=== PATIENT | male | born 1990 | race American Indian/Alaskan Native ===

== ENCOUNTER 2021-07-10 01:55 | Emergency (ER) | payer MEDICAID ==
[2021-07-10 02:49] LABS: AMPHETAMINES,URINE NEGATIVE (NEGATIVE); BARBITURATES,URINE NEGATIVE (NEGATIVE); BENZODIAZEPINE,URINE NEGATIVE (NEGATIVE); MDMA (ECSTASY), URINE NEGATIVE (NEGATIVE); METHADONE,URINE NEGATIVE (NEGATIVE); METHAMPHETAMINES,URINE NEGATIVE (NEGATIVE); OPIATES,URINE NEGATIVE (NEGATIVE); OXYCODONE,URINE NEGATIVE (NEGATIVE); PHENCYCLIDINE,URINE NEGATIVE (NEGATIVE); TCA,URINE NEGATIVE (NEGATIVE)
[2021-07-10 02:56] LABS: CHLORIDE,CL 104 mEq/L (98-106); SODIUM,NA 143 mEq/L (136-145)
--- NOTE | 2021-07-10 03:15 | EDM.PDOC ---
ED HPI GENERAL MEDICAL PROBLEM - General Chief Complaint: General Stated Complaint: detoxing, vomiting Time Seen by Provider: 07/10/21 02:30 Source of Information: Reports: Patient, Old Records History Limitations: Reports: No Limitations - History of Present Illness INITIAL COMMENTS - FREE TEXT/NARRATIVE: Toney is a 30 yo male who presents to the ED with c/o cough, runny nose and covid exposure. He is very concerned regarding this exposure to a coworker and a resident at the [facility]. Reports he has had low grade fever as well. Reports this is main reason for presenting as he wishes to be tested. He also reports he has been experiencing alcohol withdrawal. Reports he quit drinking ~ 24 hours ago. Has started with tremors and vomiting recently. Denies any headache, hallucinations, anxiety. CIWA 9 for vomiting and tremor. He reports he has been getting bloody noses frequently. Does currently have epistaxis from right nare, which started again after he vomited recently. He reports he has alcoholic cirrhosis and portal hypertension. Bilirubin has been chronically elevated. He is jaundiced. Is scheduled to see GI doctor and have US tomorrow at [facility]. Chart review indicates he was hospitalized ~3 weeks ago in [place] for withdrawal. Initially he left AMA and then presented again to the ED almost immediately following leaving AMA. Onset: Today Duration: Getting Worse Associated Symptoms: Reports: Cough, Fever/Chills, Loss of Appetite, Nausea/Vomiting, Weakness. Denies: Confusion, Chest Pain, cough w sputum, Diaphoresis, Headaches, Malaise, Rash, Seizure, Shortness of Breath, Syncope - Related Data Allergies Allergy/AdvReac Type Severity Reaction Status Date / Time No Known Allergies Allergy Verified 07/10/21 02:32 Home Meds: Home Meds Amoxicillin/Clavulanate K [Augmentin 500-125 MG] 1 tab PO TID #30 tab 06/15/21 [Rx] Bacitracin [Bacitracin Oint] 1 gm TOP BID #1 tube 06/15/21 [Rx] Ferrous Sulfate 325 mg PO DAILY #30 tab 06/15/21 [Rx] Folic Acid 1 mg PO DAILY #30 tab 06/15/21 [Rx] Metoprolol Tartrate 25 mg PO BID #60 tab 06/15/21 [Rx] Multivitamins/Minerals [Vitamins and Minerals] 1 tab PO WITHBREAKFAST #30 tablet 06/15/21 [Rx] Thiamine [Vitamin B-1] 100 mg PO DAILY #30 tab 06/15/21 [Rx] amLODIPine [Norvasc] 5 mg PO DAILY #30 tab 06/15/21 [Rx] Lactulose [Chronulac] 15 gm PO TID 07/10/21 [History] Magnesium Oxide 400 mg PO BIDMEALS 07/10/21 [History] Spironolactone [Aldactone] 25 mg PO DAILY 07/10/21 [History] Past Medical History - Past Health History Medical/Surgical History: Denies Medical/Surgical History Cardiovascular History: Reports: Hypertension Gastrointestinal History: Reports: Cirrhosis, Fatty Liver Neurological History: Reports: Concussion Psychiatric History: Reports: Addiction Endocrine/Metabolic History: Reports: Diabetes, Type II Other Endocrine/Metabolic History: States he was tested once and they stated he was pre diabetic. Never followed up. Hematologic History: Reports: Blood Transfusion(s), Folic Acid - Infectious Disease History Infectious Disease History: Reports: Chicken Pox - Past Surgical History GI Surgical History: Reports: Colonoscopy, EGD, Other (See Below) Other GI Surgeries/Procedures: abd fluid drained Male Surgical History: Reports: Circumcision Social & Family History - Family History Family Medical History: No Pertinent Family History - Tobacco Use Tobacco Use Status *Q: Never Tobacco User - Caffeine Use Caffeine Use: Reports: None Other Caffeine Use: 1 soda /day - Recreational Drug Use Recreational Drug Use: No ED ROS GENERAL - Review of Systems Review Of Systems: Comprehensive ROS is negative, except as noted in HPI. Constitutional: Reports: Fever, Chills HEENT: Reports: Nosebleed Respiratory: Reports: Cough Cardiovascular: Reports: No Symptoms GI/Abdominal: Reports: Diarrhea, Nausea, Vomiting. Denies: Abdominal Pain, Bl ack Stool, Bloody Stool, Hematemesis : Reports: No Symptoms Musculoskeletal: Reports: No Symptoms Skin: Reports: Jaundice. Denies: Pruritis Neurological: Denies: Confusion, Dizziness, Headache, Seizure, Difficulty Walking Psychiatric: Denies: Hallucinations ED EXAM, GENERAL - Physical Exam Exam: See Below Exam Limited By: No Limitations General Appearance: Alert, WD/WN, No Apparent Distress Eye Exam: Bilateral Eye: EOMI, Normal Fundi, Normal Inspection, PERRL Nose: Other (epistaxis ) Head: Atraumatic, Normocephalic Neck: Normal Inspection, Supple, Non-Tender, Full Range of Motion Respiratory/Chest: No Respiratory Distress, Lungs Clear, Normal Breath Sounds, No Accessory Muscle Use, Chest Non-Tender Cardiovascular: Normal Peripheral Pulses, Regular Rate, Rhythm, No Edema, No Gallop, No JVD, No Rub, Systolic Murmur GI/Abdominal: Normal Bowel Sounds, Soft, Other (ascites) Back Exam: Normal Inspection, Full Range of Motion, NT Extremities: Normal Inspection, Normal Range of Motion, Non-Tender, Normal Capillary Refill, No Pedal Edema Neurological: Alert, Oriented, Normal Cognition, Normal Gait, No Motor/Sensory Deficits Psychiatric: Normal Affect, Normal Mood Skin Exam: Jaundice Course - Vital Signs Last Recorded V/S: Last Vital Signs Temp 100.7 F H 07/10/21 02:28 Pulse 100 07/10/21 02:28 Resp 20 07/10/21 02:28 BP 156/85 H 07/10/21 02:28 Pulse Ox 98 07/10/21 02:28 - Orders/Labs/Meds Labs: Laboratory Tests 07/10/21 07/10/21 07/10/21 Range/Units 02:13 02:30 02:30 WBC 11.3 H (4.0-11.0) 10^3/uL RBC 2.63 L (4.50-6.00) x10^6/uL Hgb 9.3 L (14.0-18.0) g/dL Hct 26.8 L (42.0-52.0) % MCV 101.9 H (83.0-97.0) fL MCH 35.4 H (27.0-32.0) pg MCHC 34.7 (32.0-36.0) g/dL RDW Coeff of Santosh 14.6 (11.0-15.0) % Plt Count 41 L* (150-400) 10^3/uL Immature Gran % (Auto) 0.2 (0.0-4.9) % Neut % (Auto) 90.2 H (41-71) % Lymph % (Auto) 5.1 L (24-44) % Howell % (Auto) 4.1 (0-10) % Eos % (Auto) 0.1 (0-6) % Baso % (Auto) 0.3 (0-1) % Neut # (Auto) 10.19 H (1.80-8.00) x10^3/uL Lymph # (Auto) 0.57 L (0.60-5.00) 10^3/uL Howell # (Auto) 0.46 (0.00-1.50) 10^3/uL Eos # (Auto) 0.01 (0.00-1.50) 10^3/uL Baso # (Auto) 0.03 (0.00-0.50) 10^3/uL Immature Gran # (Auto) 0.02 (0.00-0.49) 10^3/uL Sodium (136-145) mEq/L Potassium (3.5-5.0) mEq/L Chloride (98-106) mEq/L Carbon Dioxide (21-32) mmol/L BUN (7-18) mg/dL Creatinine (0.7-1.3) mg/dL Est Cr Clr Drug Dosing mL/min Estimated GFR (MDRD) (>=60) mL/min Glucose (75-99) mg/dL Calcium (8.4-10.1) mg/dL Total Bilirubin (0.0-1.0) mg/dL AST (15-37) U/L ALT (12-78) U/L Alkaline Phosphatase (46-116) U/L C-Reactive Protein (0.2-0.8) mg/dL Total Protein (6.4-8.2) g/dL Albumin (3.4-5.0) g/dL Urine Color Randolph (YELLOW) Urine Appearance Clear (CLEAR) Urine pH 6.0 (4.5-8.0) Ur Specific Roslyn 1.025 H (1.003-1.020) Urine Protein 30 H (NEGATIVE) mg/dL Urine Glucose (UA) Negative (NEGATIVE) mg/dL Urine Ketones Negative (NEGATIVE) mg/dL Urine Occult Blood Negative (NEGATIVE) Urine Nitrite Negative (NEGATIVE) Urine Bilirubin Moderate H (NEGATIVE) Urine Urobilinogen 0.2 (0.2-1.0) EU/dL Ur Leukocyte Esterase Negative (NEGATIVE) Urine RBC 0-5 (0-5) /HPF Urine WBC 0-5 (0-5) /HPF Urine Mucus Moderate H (NOT SEEN) /HPF Urine Opiates Screen Negative (NEGATIVE) Ur Oxycodone Screen Negative (NEGATIVE) Urine Methadone Screen Negative (NEGATIVE) Ur Barbiturates Screen Negative (NEGATIVE) U Tricyclic Antidepress Negative (NEGATIVE) Ur Phencyclidine Scrn Negative (NEGATIVE) Ur Amphetamine Screen Negative (NEGATIVE) U Methamphetamines Scrn Negative (NEGATIVE) Urine MDMA Screen Negative (NEGATIVE) U Benzodiazepines Scrn Negative (NEGATIVE) Urine Cocaine Screen Negative (NEGATIVE) U Marijuana (THC) Screen Negative (NEGATIVE) SARS CoV-2 RNA Rapid JEFF (NEGATIVE) 07/10/21 07/10/21 Range/Units 02:30 02:30 WBC (4.0-11.0) 10^3/uL RBC (4.50-6.00) x10^6/uL Hgb (14.0-18.0) g/dL Hct (42.0-52.0) % MCV (83.0-97.0) fL MCH (27.0-32.0) pg MCHC (32.0-36.0) g/dL RDW Coeff of Santosh (11.0-15.0) % Plt Count (150-400) 10^3/uL Immature Gran % (Auto) (0.0-4.9) % Neut % (Auto) (41-71) % Lymph % (Auto) (24-44) % Howell % (Auto) (0-10) % Eos % (Auto) (0-6) % Baso % (Auto) (0-1) % Neut # (Auto) (1.80-8.00) x10^3/uL Lymph # (Auto) (0.60-5.00) 10^3/uL Howell # (Auto) (0.00-1.50) 10^3/uL Eos # (Auto) (0.00-1.50) 10^3/uL Baso # (Auto) (0.00-0.50) 10^3/uL Immature Gran # (Auto) (0.00-0.49) 10^3/uL Sodium 143 (136-145) mEq/L Potassium 3.9 (3.5-5.0) mEq/L Chloride 104 (98-106) mEq/L Carbon Dioxide 23 (21-32) mmol/L BUN 11 (7-18) mg/dL Creatinine 1.3 (0.7-1.3) mg/dL Est Cr Clr Drug Dosing 80.38 mL/min Estimated GFR (MDRD) > 60 (>=60) mL/min Glucose 157 H (75-99) mg/dL Calcium 9.2 (8.4-10.1) mg/dL Total Bilirubin 8.5 H (0.0-1.0) mg/dL AST 90 H (15-37) U/L ALT 26 (12-78) U/L Alkaline Phosphatase 190 H (46-116) U/L C-Reactive Protein < 0.2 L (0.2-0.8) mg/dL Total Protein 8.9 H (6.4-8.2) g/dL Albumin 3.5 (3.4-5.0) g/dL Urine Color (YELLOW) Urine Appearance (CLEAR) Urine pH (4.5-8.0) Ur Specific Roslyn (1.003-1.020) Urine Protein (NEGATIVE) mg/dL Urine Glucose (UA) (NEGATIVE) mg/dL Urine Ketones (NEGATIVE) mg/dL Urine Occult Blood (NEGATIVE) Urine Nitrite (NEGATIVE) Urine Bilirubin (NEGATIVE) Urine Urobilinogen (0.2-1.0) EU/dL Ur Leukocyte Esterase (NEGATIVE) Urine RBC (0-5) /HPF Urine WBC (0-5) /HPF Urine Mucus (NOT SEEN) /HPF Urine Opiates Screen (NEGATIVE) Ur Oxycodone Screen (NEGATIVE) Urine Methadone Screen (NEGATIVE) Ur Barbiturates Screen (NEGATIVE) U Tricyclic Antidepress (NEGATIVE) Ur Phencyclidine Scrn (NEGATIVE) Ur Amphetamine Screen (NEGATIVE) U Methamphetamines Scrn (NEGATIVE) Urine MDMA Screen (NEGATIVE) U Benzodiazepines Scrn (NEGATIVE) Urine Cocaine Screen (NEGATIVE) U Marijuana (THC) Screen (NEGATIVE) SARS CoV-2 RNA Rapid JEFF Negative (NEGATIVE) Meds: Medications Discontinued Medications Generic Name Dose Route Start Last Admin Trade Name Freq PRN Reason Stop Dose Admin Multivitamins/Minerals 10 ml/ 1,015.2 mls @ 500 mls/hr 07/10/21 03:08 07/10/21 03:40 Folic Acid 1 mg/ Thiamine HCl IV 07/10/21 05:09 500 mls/hr 100 mg/ Magnesium Sulfate 2 gm ONETIME ONE Administration / Sodium Chloride Lorazepam 1 mg 07/10/21 03:08 07/10/21 03:39 Lorazepam 2 Mg/Ml Syringe IVPUSH 07/10/21 03:09 1 mg ONETIME ONE Administration Lorazepam 2 packet 07/10/21 03:09 07/10/21 05:21 Take Home: Lorazepam 0.5 Mg Tab, 2 Tab Pack PO 07/10/21 03:10 2 packet ONETIME ONE Administration Ondansetron HCl 4 mg 07/10/21 03:09 07/10/21 03:42 Ondansetron 4 Mg/2 Ml Sdv IVPUSH 07/10/21 03:10 4 mg STAT STA Administration - Re-Assessments/Exams Free Text/Narrative Re-Assessment/Exam: 07/10/21 03:29 Discussed lab results with patient. Will administer banana bag, zofran and ativan. Epistaxis resolved. Patient does currently have tremors but no other withdrawal symptoms. Discussed discharge home with PO ativan for withdrawal symptoms. Patient agreeable. Discussed importance of seeing his GI provider tomorrow as scheduled due to persistently elevated bilirubin. Departure - Departure Time of Disposition: 04:12 Disposition: Home, Self-Care 01 Condition: Poor Clinical Impression: Total bilirubin, elevated, Portal hypertension, Thrombocytopenia, Jaundice due to hepatitis, Epistaxis, recurrent, Viral URI with cough Cirrhosis of liver Qualifiers: Hepatic cirrhosis type: alcoholic cirrhosis Ascites presence: with ascites Qualified Code(s): K70.31 - Alcoholic cirrhosis of liver with ascites Alcohol withdrawal syndrome Qualifiers: Complication of substance-induced condition: with unspecified complication Qualified Code(s): F10.239 - Alcohol dependence with withdrawal, unspecified - Discharge Information *PRESCRIPTION DRUG MONITORING PROGRAM REVIEWED*: Not Applicable *COPY OF PRESCRIPTION DRUG MONITORING REPORT IN PATIENT OSEAS: Not Applicable Instructions: Thrombocytopenia, [id number], Alcohol Withdrawal Syndrome, [id number] Referrals: PCP,None [Primary Care Provider] - Forms: ED Department Discharge Additional Instructions: - Zofran as needed for nausea/vomiting - Rest and push fluids - Refrain from alcohol - Ativan (lorazepam) 1 tablet orally every 3 hours as needed for withdrawal symptoms (tremors, anxiety, headache, N/V) - Resume home medications - Follow up with GI doctor as scheduled today - Follow up with PCP for recheck in next 3-5 days - Return to ED for emergent needs or if withdrawal symptoms not managed by PO Ativan - Problem List & Annotations (1) Viral URI with cough SNOMED Code(s): 873291663, 272779985 Code(s): J06.9 - ACUTE UPPER RESPIRATORY INFECTION, UNSPECIFIED Status: Acute (2) Alcohol withdrawal syndrome SNOMED Code(s): 777610635 Code(s): F10.239 - ALCOHOL DEPENDENCE WITH WITHDRAWAL, UNSPECIFIED Status: Acute Qualifiers: Complication of substance-induced condition: with unspecified complication Qualified Code(s): F10.239 - Alcohol dependence with withdrawal, unspecified (3) Cirrhosis of liver SNOMED Code(s): 11737761 Code(s): K74.60 - UNSPECIFIED CIRRHOSIS OF LIVER Status: Acute Qualifiers: Hepatic cirrhosis type: alcoholic cirrhosis Ascites presence: with ascites Qualified Code(s): K70.31 - Alcoholic cirrhosis of liver with ascites (4) Epistaxis, recurrent SNOMED Code(s): 603777662, 773404979 Code(s): R04.0 - EPISTAXIS Status: Acute (5) Jaundice due to hepatitis SNOMED Code(s): 91742046 Code(s): K75.9 - INFLAMMATORY LIVER DISEASE, UNSPECIFIED Status: Acute (6) Portal hypertension SNOMED Code(s): 18023490 Code(s): K76.6 - PORTAL HYPERTENSION Status: Acute (7) Thrombocytopenia SNOMED Code(s): 490732529 Code(s): D69.6 - THROMBOCYTOPENIA, UNSPECIFIED Status: Acute (8) Total bilirubin, elevated SNOMED Code(s): 980559717713861 Code(s): R17 - UNSPECIFIED JAUNDICE Status: Acute - Assessment/Plan Plan: Patient presents to ED with multiple complaints. Lab work all stable at baseline for patient. Covid is negative, which was his main concern for presenting this evening due to his exposure at his workplace. Discussed viral etiology and recommend symptomatic cares at this time. Does appear to be having mild withdrawal symptoms. CIWA 9 for n/v and tremor. Denies any hallucinations, anxiety, headache etc. Patient was given banana bag while in ED. Was also given Zofran for nausea as well as Ativan for tremors/withdrawal. He will be discharged home with Ativan 0.5 mg tablets to use as needed for withdrawal s ymptoms. He is advised to follow up with his GI doctor as scheduled. He is advised to follow up with his PCP in the next few days. He is advised to return to the ED for emergent needs. Patient discharged in stable condition to home.
[2021-07-10] MEDS: LORazepam 2 MG/ML Syringe IVPUSH ONE (03:39)
[2021-07-10] MEDS: MVI, Adult with Vitamin K 10 ML, Folic Acid 1 MG, Thiamine 100 MG, Magnesium Sulfate 2 ... IV ONE ×5 (03:40)
[2021-07-10] MEDS: Ondansetron 4 MG/2 ML SDV IVPUSH STA (03:42)
[2021-07-10] MEDS: Take Home: LORazepam 0.5 MG Tab, 2 Tab Pack PO ONE (05:21)
== END 2021-07-10 08:05 | disposition home or self-care (01) ==
LOC: CC.ED 01:55
DX: J06.9 Acute upper respiratory infection, unspecified (principal); K70.31 Alcoholic cirrhosis of liver with ascites; F10.239 Alcohol dependence with withdrawal, unspecified; K75.9 Inflammatory liver disease, unspecified; R17 Unspecified jaundice; R04.0 Epistaxis; D69.6 Thrombocytopenia, unspecified; I10 Essential (primary) hypertension; E80.7 Disorder of bilirubin metabolism, unspecified; E11.9 Type 2 diabetes mellitus without complications; Z79.899 Other long term (current) drug therapy; Z20.822 Contact with and (suspected) exposure to COVID-19
CPT/HCPCS: 36415; 80053; 80305-QW; 81001; 85025; 86140; 96365; 96366; 96375; 99283-25; A9270-GY; J2060; J2405; J3411; J3475; J3490; J7030; U0002